=== PATIENT | female | born 1990 | race American Indian/Alaskan Native ===

== ENCOUNTER 2017-06-26 11:56 | Emergency (ER) | payer MEDICAID ==
[2017-06-26 14:40] VITALS: BP 116/81
--- NOTE | 2017-06-26 14:40 | Emergency Department Report ---
HPI - General Chief Complaint: Upper Respiratory Infection Time Seen by Provider: 06/26/17 14:24 - HPI HPI: Room 4 The patient is a 27-year-old female presenting with a chief complaint of facial pain and congestion. The patient states for approximately 1 week she has had "sinus problems" which includes nasal congestion and a headache. The patient states last night she began "feeling bad" which includes feeling hot and cold, nasal congestion and facial pain. Patient states she's had a cough productive of green sputum and has had green rhinorrhea. Patient denies nausea/vomiting, abdominal pain or vaginal bleeding. Location: [See above] Duration: One week Quality: Pain Severity: Moderate Modifying factors: [see above] Context: [see above] Mode of transportation: Unknown ED Past Medical Hx - Past Medical History Previous Medical History?: No - Surgical History Past Surgical History?: No - Family History Family history: no significant - Social History Smoking Status: Never Smoker Substance Use Type: None (denies illicit drug use) - Medications Home Medications: Home Medications Medication Instructions Recorded Confirmed Last Taken Type Amoxicillin/Potassium Clav 1 each PO BID #20 tablet 06/26/17 Unknown Rx [Augmentin 500-125 Tablet] ED Review of Systems ROS: Stated complaint: SINUS INFECTION Other details as noted in HPI Constitutional: chills, fever (subjective) ENT: congestion, other (facial pain) Respiratory: cough Gastrointestinal: denies: abdominal pain, nausea, vomiting Genitourinary: denies: abnormal menses Physical Exam - Physical Exam Vital Signs: Vital Signs 06/26/17 12:05 Temperature 98.7 F Pulse Rate 110 H Respiratory 16 Rate Blood Pressure 113/80 O2 Sat by Pulse 100 Oximetry Physical Exam: GENERAL: The patient is well-developed well-nourished female sitting on stretcher not appear to be in acute distress. [] HEENT: Normocephalic. Atraumatic. Extraocular motions are intact. Tenderness to percussion of bilateral maxillary sinuses. TMs clear bilaterally NECK: Supple. Trachea midline CHEST/LUNGS: Clear to auscultation. There is no respiratory distress noted. HEART/CARDIOVASCULAR: Regular. There is no tachycardia. There is no gallop rub or murmur. ABDOMEN: Abdomen is gravid. Patient has normal bowel sounds. SKIN: There is no rash. There is no diaphoresis. NEURO: The patient is awake, alert, and oriented. The patient is cooperative. The patient has normal speech MUSCULOSKELETAL: There is no evidence of acute injury. ED Course Vital Signs 06/26/17 12:05 Temperature 98.7 F Pulse Rate 110 H Respiratory 16 Rate Blood Pressure 113/80 O2 Sat by Pulse 100 Oximetry ED Medical Decision Making - Differential Diagnosis sinusitis, bronchitis Critical care attestation.: If time is entered above; I have spent that time in minutes in the direct care of this critically ill patient, excluding procedure time. ED Disposition Clinical Impression: Acute sinusitis, Facial pain Disposition: - TO HOME OR SELFCARE Is pt being admited?: No Does the pt Need Aspirin: No Condition: Stable Instructions: Sinusitis (ED) Additional Instructions: Return to the emergency department immediately should you develop worsening symptoms, fever, inability to tolerate food or liquid or any other concerns. Prescriptions: Amoxicillin/Potassium Clav [Augmentin 500-125 Tablet] 1 each PO BID #20 tablet Referrals: PRIMARY CARE, [Primary Care Provider] - 3-5 Days EUGENE DALE MD [Staff Physician] - 3-5 Days (Dr. Dale is an urban designer (ear nose and throat doctor). Please follow up with her for further evaluation) Time of Disposition: 14:47
== END 2017-06-26 15:13 | disposition home or self-care (01) ==
LOC: ED 11:56
DX: J01.90 Acute sinusitis, unspecified (principal)
CPT/HCPCS: 99282

== ENCOUNTER 2017-11-06 20:26 | Inpatient (IN) | payer MEDICAID ==
[2017-11-06] MEDS ORDERED: LACTATED RINGERS 1,000 ML ONE (22:53)
[2017-11-06 23:22] LABS: Hematocrit 37.8 % (30.3-42.9); Mean Corpuscular HGB Conc 35 % (30-34); Mean Corpuscular Hemoglobin 32 pg (28-32); Mean Corpuscular Volume 92 fl (79-97); Platelet Count 136 K/mm3 (140-440); Red Blood Count 4.09 M/mm3 (3.65-5.03); Red Cell Distribution Width 14.3 % (13.2-15.2)
--- NOTE | 2017-11-07 01:53 | History and Physical Report ---
History of Present Illness Date of examination: 11/07/17 Date of admission: IUP@40 1/7wga with tachycardia Chief complaint: Contractions History of present illness: Past History : 0 Term Births: 0 Premature Births: 0 Living Children: 0 Para: 0 Mult. Births: 0 Prev : 0 Prev. attempt? 0 Aborta: 0 Elect. Ab: 0 Spont. Ab: 0 Ectopics: 0 Risk Factors: Smoked Tobacco Use: Never smoker Smokeless Tobacco Use: Never Passive smoke exposure: no Drug use: no HIV high-risk behavior: low risk Alcohol use: yes Drinks per day: social Dietary Counseling: pn yes Past Medical History: Negative Past Medical History Past Surgical History: Right Breast Biopsy: (2012) Family History Summary: Other family member - Has No Family History of Ovarvian Cancer - Entered On: 02/2018 Other family member - Has No Family History of Colon Cancer - Entered On: 2017 Other family member - Has Family History of Hypertension - Entered On: 04/27/2017 Other family member - Has Family History of Diabetes - Entered On: 04/27/2017 Other family member - Has Family History Breast Cancer - Entered On: 04/27/2017 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 Infection History Hx of STD: chlamydia HIV Risk Eval: low risk Hepatitis B Risk Eval: low risk Personal hx. of genital herpes: no Genetic History Congenital Heart Defect: Mom: no Dad: no Tomás Disease: Mom: no Dad: no Thalassemia Mom: no Dad: no Neural Tube Defect Mom: no Dad: no Down's Syndrome Mom: no Dad: no Pranay-Sachs Mom: no Dad: no Sickle Cell Disease/Trait Mom: no Dad: no Comments: cousin trait Hemophilia Mom: no Dad: no Muscular Dystrophy Mom: no Dad: no Cystic Fibrosis Mom: no Dad: no [place] Chorea Mom: no Dad: no Mental Retardation Mom: no Dad: no Fragile X Mom: no Dad: no Other Genetic/Chromosomal Disorder Mom: no Dad: no Child w/other defect Mom: no Dad: no Enviromental Exposures Xray Exposure: no Medication, drug, or alcohol use since LMP: no Chemical/Other Exposure: no Exposure to Cat Liter: no Hx of Parvovirus (Fifth Disease): no 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 Current Allergies: No known allergies Past History - Obstetrical History Expected Date of Delivery: 11/06/17 Actual Gestation: 40 Week(s) 1 Day(s) : 1 Medications and Allergies Allergies Allergy/AdvReac Type Severity Reaction Status Date / Time No Known Allergies Allergy Unverified 06/26/17 12:09 Home Medications Medication Instructions Recorded Confirmed Last Taken Type Amoxicillin/Potassium Clav 1 each PO BID #20 tablet 06/26/17 Unknown Rx [Augmentin 500-125 Tablet] Review of Systems All systems: negative Genitourinary: contractions - Vital Signs Vital signs: Vital Signs Pulse BP 94 H 135/93 11/06/17 21:15 11/06/17 21:15 Temp Pulse Resp BP Pulse Ox 98.4 F 78 18 142/86 11/06/17 21:18 11/07/17 01:46 11/06/17 21:18 11/07/17 01:46 - Physical Exam Breasts: Positive: deferred Cardiovascular: Regular rate Lungs: Positive: Normal air movement Abdomen: Positive: normal appearance. Negative: distention, tenderness, guarding Extremities: Positive: normal. Negative: tenderness, edema - Obstetrical FHR: category 2 Uterine Contraction Monitor Mode: External Cervical Dilatation: 1 Cervical Effacement Percentage: 0 station: -4 Uterine Contraction Pattern: Irregular Results Result Diagrams: 11/06/17 23:00 Abnormal lab results 11/06/17 Range/Units 23:00 MCHC 35 H (30-34) % Plt Count 136 L (140-440) K/mm3 All other labs normal. Assessment and Plan - Patient Problems (1) 40 weeks gestation of Current Visit: Yes Status: Acute (2) tachycardia Current Visit: Yes Status: Acute Plan to address problem: She received IV fluid and now tachycardia has resolved, will observe for now. Induce in tachycardia recurs.
--- NOTE | 2017-11-07 03:27 | Ultrasound Report ---
FINAL REPORT PROCEDURE: US OB LIMITED TECHNIQUE: Real-time limited sonographic examination was performed for evaluation of size, position, heartbeat, fluid volume for each fetus with image documentation (1 or more fetuses). CPT 94740 HISTORY: Head Position COMPARISON: No prior studies are available for comparison. FINDINGS: The fetus is in a cephalic presentation. IMPRESSION: The fetus is in cephalic presentation.
[2017-11-07 03:48] LABS: Alanine Aminotransferase 17 units/L (7-56)
--- NOTE | 2017-11-07 04:11 | Ultrasound Report ---
FINAL REPORT PROCEDURE: US OB LIMITED TECHNIQUE: Real-time limited sonographic examination was performed for evaluation of size, position, heartbeat, fluid volume for each fetus with image documentation (1 or more fetuses). CPT 48214 HISTORY: tachycardia COMPARISON: No prior studies are available for comparison. FINDINGS: Fetus is in a cephalic presentation. IMPRESSION: Fetus is in a cephalic presentation.
[2017-11-07] MEDS ORDERED: STADOL IV PRN (04:39)
[2017-11-07] MEDS ORDERED: SUBLIMAZE IV PRN (04:39)
[2017-11-07] MEDS ORDERED: MINERAL OIL PO PRN (04:39)
[2017-11-07] MEDS ORDERED: BRETHINE SUB-Q PRN (04:39)
[2017-11-07] MEDS ORDERED: BRETHINE IVP PRN (04:39)
[2017-11-07] MEDS ORDERED: ZOFRAN IV PRN (04:39)
[2017-11-07] MEDS ORDERED: XYLOCAINE 2% INFILTRATI ONE (04:39)
[2017-11-07] MEDS ORDERED: NUBAIN IV PRN (04:39)
[2017-11-07] MEDS ORDERED: NARCAN 0.4 MG/1 ML IV PRN (04:39)
--- NOTE | 2017-11-07 04:47 | Progress Note ---
Assessment and Plan - Patient Problems (1) 40 weeks gestation of Current Visit: Yes Status: Acute (2) tachycardia Current Visit: Yes Status: Resolved (3) Active labor at term Current Visit: Yes Status: Acute (4) Thrombocytopenia Current Visit: Yes Status: Acute (5) Elevated blood pressure reading Current Visit: Yes Status: Acute Subjective - Subjective Date of service: 11/07/17 Principal diagnosis: iup@40 1/7wga, low platelets, labor Interval history: Past History : 0 Term Births: 0 Premature Births: 0 Living Children: 0 Para: 0 Mult. Births: 0 Prev : 0 Prev. attempt? 0 Aborta: 0 Elect. Ab: 0 Spont. Ab: 0 Ectopics: 0 Risk Factors: Smoked Tobacco Use: Never smoker Smokeless Tobacco Use: Never Passive smoke exposure: no Drug use: no HIV high-risk behavior: low risk Alcohol use: yes Drinks per day: social Dietary Counseling: pn yes Past Medical History: Negative Past Medical History Past Surgical History: Right Breast Biopsy: (2012) Family History Summary: Other family member - Has No Family History of Ovarvian Cancer - Entered On: 02/2018 Other family member - Has No Family History of Colon Cancer - Entered On: 2017 Other family member - Has Family History of Hypertension - Entered On: 04/27/2017 Other family member - Has Family History of Diabetes - Entered On: 04/27/2017 Other family member - Has Family History Breast Cancer - Entered On: 04/27/2017 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 Past Medical History Surgery (Non-obstetrician gynecologist): Right Breast Biopsy: (2012) Abnormal PAP: negative Uterine Anomaly: negative Social Hx: [employer] day[employer] student Patient is single Smoking History: Patient has never smoked. Infection History Hx of STD: chlamydia HIV Risk Eval: low risk Hepatitis B Risk Eval: low risk Personal hx. of genital herpes: no Genetic History Congenital Heart Defect: Mom: no Dad: no Tomás Disease: Mom: no Dad: no Thalassemia Mom: no Dad: no Neural Tube Defect Mom: no Dad: no Down's Syndrome Mom: no Dad: no Pranay-Sachs Mom: no Dad: no Sickle Cell Disease/Trait Mom: no Dad: no Comments: cousin trait Hemophilia Mom: no Dad: no Muscular Dystrophy Mom: no Dad: no Cystic Fibrosis Mom: no Dad: no [place] Chorea Mom: no Dad: no Mental Retardation Mom: no Dad: no Fragile X Mom: no Dad: no Other Genetic/Chromosomal Disorder Mom: no Dad: no Child w/other defect Mom: no Dad: no Enviromental Exposures Xray Exposure: no Medication, drug, or alcohol use since LMP: no Chemical/Other Exposure: no Exposure to Cat Liter: no Hx of Parvovirus (Fifth Disease): no 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 Current Allergies: No known allergies Patient reports: contractions Objective - Vital Signs Vital Signs: Vital Signs - 12hr 11/06/17 11/06/17 11/06/17 21:15 21:18 21:31 Temperature 98.4 F Pulse Rate 94 H 94 H 100 H Respiratory 18 Rate Blood Pressure 135/93 129/74 Blood Pressure 135/93 [Left] 11/06/17 11/06/17 11/06/17 21:45 22:01 22:33 Temperature Pulse Rate 90 88 93 H Respiratory Rate Blood Pressure 135/82 133/87 144/91 Blood Pressure [Left] 11/06/17 11/07/17 11/07/17 22:46 00:01 00:31 Temperature Pulse Rate 87 83 77 Respiratory Rate Blood Pressure 125/81 136/79 119/76 Blood Pressure [Left] 11/07/17 11/07/17 11/07/17 00:45 01:01 01:16 Temperature Pulse Rate 81 81 81 Respiratory Rate Blood Pressure 123/80 132/83 121/79 Blood Pressure [Left] 11/07/17 11/07/17 11/07/17 01:31 01:46 01:58 Temperature Pulse Rate 72 78 82 Respiratory Rate Blood Pressure 133/83 142/86 125/74 Blood Pressure [Left] 11/07/17 11/07/17 11/07/17 02:01 02:16 02:30 Temperature Pulse Rate 80 84 96 H Respiratory Rate Blood Pressure 138/84 135/85 129/90 Blood Pressure [Left] 11/07/17 11/07/17 11/07/17 02:45 03:00 03:30 Temperature Pulse Rate 87 88 95 H Respiratory Rate Blood Pressure 122/80 127/79 127/83 Blood Pressure [Left] 11/07/17 11/07/17 03:56 04:26 Temperature Pulse Rate 96 H 85 Respiratory Rate Blood Pressure 123/86 123/78 Blood Pressure [Left] - Exam Breasts: deferred Lungs: Normal air movement Abdomen: Present: soft. Absent: tenderness Vulva: both: normal Uterus: Present: fundal height above umbilicus FHR: category 1 Cervical Dilatation: 4 Cervical Effacement Percentage: 90 station: -1 Uterine Contraction Pattern: Irregular Extremities: normal - Labs Labs: Abnormal Labs 11/06/17 11/07/17 23:00 03:10 MCHC 35 H Plt Count 136 L Creatinine 0.5 L Lactate Dehydrogenase 255 H Laboratory Results - last 24 hr 11/06/17 11/06/17 11/07/17 23:00 23:00 03:10 WBC 9.9 RBC 4.09 Hgb 13.0 Hct 37.8 MCV 92 MCH 32 MCHC 35 H RDW 14.3 Plt Count 136 L Creatinine 0.5 L Estimated GFR > 60 Uric Acid 4.0 AST 27 ALT 17 Lactate Dehydrogenase 255 H Blood Type O POSITIVE Antibody Screen Negative
[2017-11-07] MEDS ORDERED: PITOCin/NS 30 UNIT/500ML 30 UNITS/500 ML BAG IV SCH (05:00)
[2017-11-07] MEDS ORDERED: LACTATED RINGERS 1,000 ML IV SCH (05:00)
[2017-11-07] MEDS ORDERED: PITOCin/NS 20 UNIT/1000ML DRIP 20 UNITS/1,000 ML BAG IV SCH ×2 (05:00→12:07)
--- NOTE | 2017-11-07 10:16 | Procedure Note ---
OB Delivery Note - Delivery Date of Delivery: 11/07/17 ( female) Supervisor Stitching Department: [facility] Estimated blood loss: 200cc - Vaginal Delivery presentation: vertex Delivery position: OA Intrapartum events: none Delivery induction: none Delivery augmentation: rupture of membranes Delivery monitor: external FHT, external uterine Route of delivery: Delivery placenta: spontaneous Delivery cord: 3 umbilical vessels Episiotomy: none Delivery laceration: none Anesthesia: none Delivery comments: Female infant delivered KRISH over intact perineum. Infant placed skin to skin, 3 vessel cord clamped and cut. Cord blood collected. Placenta del intact and complete. Pit to IVF. no laceration to repair. EBL 200. Apgars 8/9, wt 6#6oz. Mother and remain LDR stable. - Infant A at 1 minute: 8 at 5 minutes: 9 Gender: Female (6#6oz)
[2017-11-07] MEDS ORDERED: TUCKS PAD TP PRN (12:07)
[2017-11-07] MEDS ORDERED: BENADRYL PO PRN (12:07)
[2017-11-07] MEDS ORDERED: LANSINOH TP PRN (12:07)
[2017-11-07] MEDS ORDERED: PHENERGAN PO PRN (12:07)
[2017-11-07] MEDS ORDERED: SODIUM CHLORIDE FLUSH SYRINGE 10 ML IV NR (12:07)
[2017-11-07] MEDS ORDERED: MILK OF MAGNESIA PO PRN (12:07)
[2017-11-07] MEDS ORDERED: DULCOLAX PR PRN (12:07)
[2017-11-07] MEDS ORDERED: DERMOPLAST TP PRN (12:07)
[2017-11-07] MEDS ORDERED: TYLENOL PO PRN (12:07)
[2017-11-07] MEDS: MOTRIN PO SCH (12:50)
[2017-11-07 23:48] LABS: Hematocrit 38.2 % (30.3-42.9)
[2017-11-08] MEDS: FEOSOL PO SCH ×2 (01:14→11:15)
[2017-11-08] MEDS: MOTRIN PO SCH ×3 (01:14→12:55)
[2017-11-08] MEDS: COLACE PO SCH ×2 (01:14→12:56)
[2017-11-08 07:17] VITALS: BP 102/72
[2017-11-08] MEDS ORDERED: PRENATAL VITAMIN PO SCH (10:00)
[2017-11-08] MEDS ORDERED: BOOSTRIX IM ONE (10:16)
--- NOTE | 2017-11-08 13:17 | Discharge Summary ---
Providers - Providers Date of Admission: 11/07/17 02:45 Date of discharge: 11/08/17 (desires d/c home) Attending physician: WALTER MORRISON 11/07/17 12:07 Consult to Preschool Lead Teacher [CONS] Routine Reason For Exam: assistance with , SNS Primary care physician: WALTER MORRISON Hospitalization Reason for admission: Labor Condition: Good Pertinent studies: normal pre-e labs, post delivery H&H 13.0/38.2 Procedures: vaginal Hospital course: uncomplicated vaginal and course. Disposition: DC-01 TO HOME OR SELFCARE - Discharge Diagnoses (1) (normal spontaneous vaginal delivery) Status: Acute Core Measure Documentation - Palliative Care Palliative Care/ Comfort Measures: Not Applicable - Core Measures Any of the following diagnoses?: none Exam - Constitutional Vitals: Temp Pulse Resp BP Pulse Ox 98.7 F 63 18 102/72 99 11/08/17 07:00 11/08/17 07:00 11/08/17 12:55 11/08/17 07:00 11/07/17 14:54 General appearance: Present: no acute distress, well-nourished - EENT Eyes: Present: PERRL ENT: hearing intact, clear oral mucosa - Neck Neck: Present: supple, normal ROM - Respiratory Respiratory effort: normal Respiratory: bilateral: CTA - Cardiovascular Heart Sounds: Present: S1 & S2. Absent: rub, click - Extremities Extremities: pulses symmetrical, No edema Peripheral Pulses: within normal limits - Abdominal General gastrointestinal: Present: soft, non-tender, non-distended, normal bowel sounds Female genitourinary: Present: normal - Integumentary Integumentary: Present: clear, warm, dry - Musculoskeletal Musculoskeletal: gait normal, strength equal bilaterally - Psychiatric Psychiatric: appropriate mood/affect, intact judgment & insight - Neurologic Neurologic: CNII-XII intact, moves all extremities - Additional findings Additional findings: , lochia scant, fundus firm Plan Activity: no restrictions Diet: regular Follow up with: WALTER MORRISON MD [Primary Care Provider] - 12/10/17 (Congratulations!! Please call [phone] to schedule your visit in 4 weeks. Call for any questions or concerns.) Prescriptions: Ibuprofen [Motrin 800 MG tab] 800 mg PO Q8HR PRN #30 tablet PRN Reason: Pain
== END 2017-11-08 15:30 | disposition home or self-care (01) | DRG 775 ==
LOC: TRG 20:26 → OBSVTOIN 11-07 02:45 → LD 11-07 02:45 → OB 11-07 11:50
PROVIDERS: ADMIT Obstetrics & Gynecology; ATTEND Obstetrics & Gynecology
PROC: 10E0XZZ Delivery of Products of Conception, External Approach (ICD-10-PCS; principal; 2017-11-07)
DX: O76 Abnormality in fetal heart rate and rhythm complicating labor and delivery (principal); O99.12 Other diseases of the blood and blood-forming organs and certain disorders involving the immune mechanism complicating childbirth; D69.6 Thrombocytopenia, unspecified; R03.0 Elevated blood-pressure reading, without diagnosis of hypertension; Z3A.40 40 weeks gestation of pregnancy; Z37.0 Single live birth; Z82.49 Family history of ischemic heart disease and other diseases of the circulatory system; Z83.3 Family history of diabetes mellitus; Z80.3 Family history of malignant neoplasm of breast; Z79.899 Other long term (current) drug therapy; O75.89 Other specified complications of labor and delivery
CPT/HCPCS: 36415; 76815; 82565; 83615; 84450; 84460; 84550; 85014; 85018; 85027; 86592; 86850; 86900; 86901; J2590; J7120